=== PATIENT | male | born 1965 | race Caucasian/White ===

== ENCOUNTER 2016-10-01 23:57 | Emergency (ER) | payer MEDICARE, OTHER ==
[~2016-10-01 23:57] MED LIST: ACET500CAP PO; ALEVE220 MG PO; ALLEGRA PO; ALLEGRA180 PO; AVONEX IM; AXID; AXID300 MG PO; C25 PO; CALTRA600D PO; COPAXONE SC; COUMADIN3 MG PO; COUMADIN4 MG PO; COUMADIN6 MG PO; CULTURELLE OTC; DEPAKOTEER PO; DSS PO; EFFEXOR100 MG PO; EFFEXXR75 PO; GENTAMICIN; IMURAN50 M1 OR; JANTOVEN3 MG PO; KLOR-CON M1010 MEQ PO; KLOR-CON M2020 MEQ PO; KLOR-CON20 MEQ PO; LEXAPRO20 PO; MACROBID PO; MAGGEL600 MG PO; MAGNESIUM PO; MULTIPLE VIT PO; NIZATIDINE PO; OMNICEF300 PO; P5 PO; SEPTRA DS1 TAB PO; WOMENS MULTI PO; [UNRECOGNIZED DRUG - OTHER]
[2016-10-02 02:54] LABS: BASOPHILS 0.1 %; BASOPHILS ABSOLUTE 0.04 10/3/uL (0.0-0.16); EOSINOPHILS 0 %; EOSINOPHILS ABSOLUTE 0.01 10/3/uL (0.0-0.53); IMMATURE GRANULOCYTES 0.9 %; LYMPHOCYTES 5.4 %; LYMPHOCYTES ABSOLUTE 1.88 10/3/uL (0.67-4.30); MEAN CORPUSCULAR HEMOGLOB 32.9 pg (26.0-34.0); MEAN CORPUSCULAR VOLUME 91.3 fL (80-100); MEAN PLATELET VOLUME 9.8 fL (9.2-13.0); MONOCYTES 9.2 %; MONOCYTES ABSOLUTE 3.19 10/3/uL (0.21-1.20); NEUTROPHILS 84.4 %; NEUTROPHILS ABSOLUTE 29.28 10/3/uL (2.02-8.40); RED CELL COUNT 4.62 10/6/uL (4.7-6.1)
[2016-10-02 02:55] LABS: ER CBC TAT 0 Hrs 07 Mins; HEMATOCRIT 42.2 % (40.0-51.0); HEMOGLOBIN 15.2 g/dL (13.6-17.8); MANUAL DIFF NO %; PLATELET COUNT 250 10/3/uL (150-400); WHITE BLOOD CELLS 34.7 10/3/uL (4.5-10.5)
[2016-10-02 03:10] LABS: A/G RATIO 0.8 (0.7-1.9); ALBUMIN 3.9 G/DL (3.5-5.0); ALKALINE PHOSPHATASE 66 U/L (45-117); BUN (BLOOD UREA NITROGEN) 14 MG/DL (6-23); CALCIUM, SERUM 9.4 MG/DL (8.5-10.4); CHLORIDE, SERUM 94 MMOL/L (96-112); CO2 (CARBON DIOXIDE) 29 MMOL/L (24-34); CREATININE 0.89 MG/DL (0.70-1.30); GFR AFRICAN AMERICAN 116 ML/MIN (>=60); GFR NON AFRICAN AMERICAN 100 ML/MIN (>=60); GLUCOSE, SERUM 105 MG/DL (60-99); POTASSIUM, SERUM 3.9 MMOL/L (3.5-5.3); SGOT(AST) 13 U/L (5-40); SGPT(ALT) 11 U/L (5-65); SODIUM, SERUM 132 MMOL/L (135-148); TOTAL BILIRUBIN 0.4 MG/DL (0-1.2); TOTAL PROTEIN 8.9 G/DL (6.0-8.5)
[2016-10-02 03:12] LABS: BAND NEUTROPHILS 4 %; ER DIFF TAT 0 Hrs 24 Mins; LYMPHOCYTES 6 %; LYMPHOCYTES ABSOLUTE (CALC) 2.08 10/3/uL (0.67-4.30); MONOCYTES 6 %; MONOCYTES ABSOLUTE (CALC) 2.08 10/3/uL (0.21-1.20); NEUTROPHILS ABSOLUTE (CALC) 30.54 10/3/uL (2.02-8.40); PLATELET ESTIMATE ADQ (ADEQUATE); RBC MORPHOLOGY NORM (NORMAL); SEGMENTED NEUTROPHIL (0) 84 %; TOTAL NUCLEATED CELLS 100
== END 2016-10-02 03:40 | disposition home or self-care (01) ==
LOC: ER 23:57
PROVIDERS: Emergency Medicine
DX: R33.9 Retention of urine, unspecified (principal); D72.829 Elevated white blood cell count, unspecified; R10.33 Periumbilical pain; F32.9 Major depressive disorder, single episode, unspecified; F41.9 Anxiety disorder, unspecified; G80.9 Cerebral palsy, unspecified; G35 Multiple sclerosis; Z86.718 Personal history of other venous thrombosis and embolism; Z88.1 Allergy status to other antibiotic agents; Z88.0 Allergy status to penicillin; Z91.09 Other allergy status, other than to drugs and biological substances; Z79.01 Long term (current) use of anticoagulants
CPT/HCPCS: 80053; 85025; 96372; 99283

== ENCOUNTER 2016-10-22 14:02 | Emergency (ER) | payer MEDICARE, OTHER | END 2016-10-22 18:48 | disposition home or self-care (01) | LOC: ER 14:02 | DX: K91.89 Other postprocedural complications and disorders of digestive system (principal); G89.18 Other acute postprocedural pain; R10.31 Right lower quadrant pain; F32.9 Major depressive disorder, single episode, unspecified; F41.9 Anxiety disorder, unspecified; Z86.718 Personal history of other venous thrombosis and embolism; Z88.0 Allergy status to penicillin; Z88.1 Allergy status to other antibiotic agents; Z88.8 Allergy status to other drugs, medicaments and biological substances; Z79.01 Long term (current) use of anticoagulants; Z79.899 Other long term (current) drug therapy | CPT/HCPCS: 74176; 99284 ==